=== PATIENT | male | born 1940 | race Caucasian/White ===

== ENCOUNTER → 2016-10-10 | Outpatient (CLI) | payer MEDICARE, BC | END | disposition home or self-care (01) | LOC: GMAB 10:29 | PROVIDERS: ATTEND Family Medicine | DX: Z12.5 Encounter for screening for malignant neoplasm of prostate (principal); I10 Essential (primary) hypertension | CPT/HCPCS: 84443; G0103 ==

== ENCOUNTER → 2016-11-28 | Outpatient (CLI) | payer MEDICARE, BC | END | disposition home or self-care (01) | LOC: LAB.O 13:19 | PROVIDERS: ATTEND Student in an Organized Health Care Education/Training Program | DX: N18.3 Chronic kidney disease, stage 3 (moderate) (principal); E11.9 Type 2 diabetes mellitus without complications; I12.9 Hypertensive chronic kidney disease with stage 1 through stage 4 chronic kidney disease, or unspecified chronic kidney disease; N25.81 Secondary hyperparathyroidism of renal origin; D63.1 Anemia in chronic kidney disease; N39.0 Urinary tract infection, site not specified ==

== ENCOUNTER → 2016-11-29 | Outpatient (CLI) | payer MEDICARE, BC | END | disposition home or self-care (01) | LOC: LAB.O 14:15 | PROVIDERS: ATTEND Student in an Organized Health Care Education/Training Program | DX: N39.0 Urinary tract infection, site not specified (principal); I12.9 Hypertensive chronic kidney disease with stage 1 through stage 4 chronic kidney disease, or unspecified chronic kidney disease; N18.3 Chronic kidney disease, stage 3 (moderate); E11.9 Type 2 diabetes mellitus without complications; N25.81 Secondary hyperparathyroidism of renal origin; D63.1 Anemia in chronic kidney disease ==

== ENCOUNTER → 2017-01-09 | Outpatient (CLI) | payer MEDICARE, BC | END | disposition home or self-care (01) | LOC: LAB 11:45 | PROVIDERS: ATTEND Internal Medicine Hematology & Oncology | DX: C61 Malignant neoplasm of prostate (principal); D47.2 Monoclonal gammopathy; E11.9 Type 2 diabetes mellitus without complications; N18.3 Chronic kidney disease, stage 3 (moderate) ==

== ENCOUNTER → 2017-03-21 | Outpatient (CLI) | payer MEDICARE, BC | END | disposition home or self-care (01) | LOC: LAB.O 11:49 | PROVIDERS: ATTEND Internal Medicine Cardiovascular Disease | DX: E78.00 Pure hypercholesterolemia, unspecified (principal); I87.2 Venous insufficiency (chronic) (peripheral); I73.9 Peripheral vascular disease, unspecified; I25.119 Atherosclerotic heart disease of native coronary artery with unspecified angina pectoris ==

== ENCOUNTER 2017-07-07 09:05 | Inpatient (IN) | payer MEDICARE ==
[~2017-07-07 09:05] MED LIST: predniSONE 10 MG TAB PO SCH
[2017-07-07] MEDS ORDERED: SODIUM PHOS/BIPHOS ENEMA ADULT 133 ML BTTL PR PRN (09:59)
[2017-07-07] MEDS ORDERED: MAGNESIUM HYDROXIDE 30 ML UD PO PRN ×2 (09:59→13:46)
[2017-07-07] MEDS ORDERED: HYDROcodone 5MG/APAP 325MG 1 EA TAB PO PRN (09:59)
[2017-07-07] MEDS ORDERED: ACETAMINOPHEN 325 MG TAB ONE (10:13)
[2017-07-07] MEDS: ACETAMINOPHEN 500 MG TAB PO PRN ×2 (10:16→21:35)
--- NOTE | 2017-07-07 11:13 | PCM.CORE ---
Physician DVT/VTE - Prophylaxis Currently: Patient already on anticoagulation therapy - Nurse DVT Assessment & Total Each Risk Factor Represents 3 Points: Age over 75 years, Medical PT with Hx of SC, CHF, Severe infection/sepsis Each Risk Factor Represents 1 Point: Hx Major Surgery <1month Each Risk Factor is 1 Point: Serious Lung disease (pnemonia <1month, COPD, emphysema,etc) DVT Assessment Score: 8 - 5 or more Very High Risk Treatments: Early Ambulation *, Sequential Compression Device
--- NOTE | 2017-07-07 11:20 | RAD ---
Study: Frontal and Lateral Views of the Chest. Indication: s/p CABG Comparison: September 17, 2015. Impression: New median sternotomy wires. Heart size normal. Thoracic aorta tortuous. Emphysema suspected, otherwise lungs clear. Osteopenia. If this is a new finding, DEXA scan recommended as well as evaluation for possible osteoporosis treatment. Electronically signed by: Eleuterio Alvarado MD 07/07/2017 11:19 AM [facility]
[2017-07-07] MEDS ORDERED: FUROSEMIDE 40 MG TAB PO ONE (12:11)
[2017-07-07] MEDS ORDERED: ARFORMOTEROL TARTRATE 15 MCG/2 ML NEB NEB SCH (12:30)
[2017-07-07] MEDS ORDERED: ALPRAZolam 0.25 MG TAB PO PRN (13:46)
[2017-07-07] MEDS ORDERED: LEVALBUTEROL NEBS 1.25 MG/3 ML VIAL NEB PRN (13:46)
[2017-07-07] MEDS ORDERED: FUROSEMIDE 40 MG TAB PO PRN (13:46)
[2017-07-07] MEDS ORDERED: BISACODYL SUPPOSITORY 10 MG PR PRN (13:46)
[2017-07-07] MEDS ORDERED: BENZOCAINE-MENTH LOZ (CEPACOL) 1 EA LOZ MT PRN (13:46)
[2017-07-07] MEDS ORDERED: ACETAMINOPHEN W/COD #3 TAB 1 EA TAB PO PRN (13:46)
[2017-07-07] MEDS ORDERED: DOCUSATE SODIUM 100 MG CAP PO PRN (13:46)
[2017-07-07] MEDS ORDERED: POLYETHYLENE GLYCOL 3350 17 GM PCKT PO PRN (13:51)
[2017-07-07] MEDS ORDERED: EPOETIN ALFA 10000 UNIT IJ SCH (14:00)
[2017-07-07] MEDS ORDERED: predniSONE 10 MG TAB ONE (14:10)
[2017-07-07] MEDS ORDERED: TAMSULOSIN 0.4 MG CAP ONE (14:10)
[2017-07-07] MEDS ORDERED: AMIODARONE HCL 200 MG TAB ONE (14:10)
[2017-07-07] MEDS: INSULIN DETEMIR 100 UNITS/ML PEN SUBCU SCH (14:20)
[2017-07-07] MEDS: LORATADINE 10 MG TAB PO SCH (14:23)
[2017-07-07] MEDS ORDERED: DEXTROSE 50% 25 GM/50 ML SYG IV PRN (14:26)
[2017-07-07] MEDS ORDERED: GLUCAGON INJ 1 MG VIAL SUBCU PRN (14:26)
[2017-07-07] MEDS: LACTOBACILLUS 1 TAB PO SCH ×2 (15:30→21:23)
[2017-07-07] MEDS: diltiaZEM HCL TAB 30 MG TAB PO SCH ×2 (15:30→21:22)
[2017-07-07] MEDS: LABETALOL 200 MG TAB PO SCH ×2 (15:30→21:22)
[2017-07-07] MEDS: LEVALBUTEROL NEBS 1.25 MG/3 ML VIAL NEB SCH (16:10)
[2017-07-07] MEDS: INSULIN LISPRO 100 UNITS/ML PEN SUBCU SCH ×2 (17:00→21:23)
[2017-07-07] MEDS: NYSTATIN SUSPENSION 5 ML UD MT SCH ×2 (17:02→21:22)
[2017-07-07] MEDS: FERROUS GLUCONATE 325 MG TAB PO SCH (17:02)
[2017-07-07] MEDS: ARFORMOTEROL TARTRATE 15 MCG/2 ML NEB NEB SCH (20:30)
[2017-07-07] MEDS: BUDESONIDE NEBS 0.5 MG/2 ML VIAL NEB SCH (20:31)
[2017-07-07] MEDS: ATORVASTATIN 10 MG TAB PO SCH (21:22)
[2017-07-07] MEDS: FAMOTIDINE 20 MG TAB PO SCH (21:22)
[2017-07-07] MEDS: APIXABAN 2.5 MG TAB PO SCH (21:23)
[2017-07-08] MEDS: LEVALBUTEROL NEBS 1.25 MG/3 ML VIAL NEB SCH ×3 (00:25→16:10)
[2017-07-08] MEDS: BUDESONIDE NEBS 0.5 MG/2 ML VIAL NEB SCH (07:28)
[2017-07-08] MEDS: ARFORMOTEROL TARTRATE 15 MCG/2 ML NEB NEB SCH ×2 (07:28→20:57)
[2017-07-08] MEDS: INSULIN LISPRO 100 UNITS/ML PEN SUBCU SCH ×4 (07:48→21:17)
[2017-07-08] MEDS: FERROUS GLUCONATE 325 MG TAB PO SCH ×3 (07:53→18:04)
[2017-07-08] MEDS: POTASSIUM CHLORIDE 20 MEQ TAB PO SCH (07:56)
[2017-07-08] MEDS: ACETAMINOPHEN 500 MG TAB PO PRN ×2 (07:57→13:53)
[2017-07-08] MEDS: LACTOBACILLUS 1 TAB PO SCH ×3 (09:42→20:36)
[2017-07-08] MEDS: TAMSULOSIN 0.4 MG CAP PO SCH (10:47)
[2017-07-08] MEDS: diltiaZEM HCL TAB 30 MG TAB PO SCH ×3 (10:47→20:36)
[2017-07-08] MEDS: APIXABAN 2.5 MG TAB PO SCH ×2 (10:47→20:36)
[2017-07-08] MEDS: DOCUSATE SODIUM 100 MG CAP PO SCH (10:47)
[2017-07-08] MEDS: ASPIRIN EC 81 MG TAB PO SCH (10:47)
[2017-07-08] MEDS: AMIODARONE HCL 200 MG TAB PO SCH (10:47)
[2017-07-08] MEDS: FUROSEMIDE 40 MG TAB PO SCH (10:47)
[2017-07-08] MEDS: LORATADINE 10 MG TAB PO SCH (10:47)
[2017-07-08] MEDS: NYSTATIN SUSPENSION 5 ML UD MT SCH ×4 (10:48→20:35)
[2017-07-08] MEDS: LABETALOL 200 MG TAB PO SCH ×3 (10:48→20:36)
--- NOTE | 2017-07-08 10:57 | HP ---
REASON FOR SWING BED ADMISSION: Physical therapy and reconditioning efforts to bridge the patient to cardiopulmonary rehabilitation. HISTORY OF PRESENT ILLNESS: Mr. Epps is a 77 year-old male patient who has a longstanding history of widespread vasculopathy. He was recently hospitalized at [facility] in [facility] for three-vessel coronary artery bypass graft. The surgery was performed on June 14. Postoperatively, he was unable to come off the ventilator and developed a ventilator associated pneumonia with an Enterobacter aeruginosa. He remained intubated for 12 days and was extubated on the . He also had acute kidney failure and required hemodialysis temporarily as well as developed atrial fibrillation with a rapid ventricular response which was treated with amiodarone. The patient was extubated and had progressed well, was able to work with physical therapy and was treated to completion for the underlying pneumonia with Ceftin. His kidney functions. had improved to the point that he was able to be discharged home to Swing Bed in efforts to get him to a cardiac rehabilitation closer to home. He is now being admitted to Swing Bed today for ongoing physical therapy and rehabilitation. He was admitted in stable condition. PAST MEDICAL HISTORY: 1. Hypertension. Last echocardiogram in 2016 showed an ejection fraction of 50 to 60%. 2. Peripheral vascular disease. 3. TIA status post left carotid endarterectomy in February 2005. 4. Chronic obstructive pulmonary disease having smoked well over 40 years but quit 20 years previously. 5. Diabetes mellitus type 2 diagnosed in 2002. PAST SURGICAL HISTORY: 1. Left carotid endarterectomy in February 2005. 2. Left femoral popliteal in 2004. 3. Stenting the right common external iliac artery in 2006 with an attempted SFA stenting in 2015 that was unsuccessful with a completely occluded SFA and distal reconstitution to profunda. 4. Stenting of left subclavian artery in 2010. 5. Stenting of right and left common iliac arteries. 6. SMA stent, July 2014. 7 Renal artery stenting to left renal artery in 2016 x2. CURRENT MEDICATIONS Provided at time of discharge on admission to Swing Bed. 1. Procrit 10,000 units Monday, Monday, Monday. 2. Potassium chloride 20 mEq daily. 3. Ferrous gluconate 324 mg twice a day. 4. Magnesium hydroxide 30 mLs as needed. 5. Prednisone 10 mg daily. 6. Flomax 0.4 mg daily. 7. Polyethylene Glycol 1 daily. 8. Loratadine 10 mg daily. 9. Xopenex nebulizer 1.25 mg every 4 hours. 10. Probiotic daily. 11. Labetalol 200 mg 3 times a day. 12. Humalog sliding scale. 13. Levemir 10 units daily. 14. Hydralazine 25 mg daily. 15. Lasix 40 mg b.i.d. as needed. 16. Famotidine 20 mg at bedtime. 17. Colace 100 mg b.i.d. 18. Diltiazem 30 mg t.i.d. 19. Amiodarone 400 mg daily until July 11, 2017. 20. Amiodarone 200 mg daily to start on July 12, 2017. 21. Pulmicort 0.5 mg nebulizer daily. 22. Dulcolax suppository 10 mg daily as needed. 23. Lipitor 10 mg at bedtime. 24. Aspirin 81 mg daily. 25. Brovana 15 mcg b.i.d. 26. Xanax 0.25 mg every 8 hours. 27. Tylenol No. 3 one every 4 hours as needed for pain. 28. Eliquis 2.5 mg b.i.d. 29. Plavix but not listed in medications at time of discharge. ALLERGIES: GABAPENTIN. PROVIDERS: Dr. Warner Jolly, Thoracic Surgeon, Dr. Ata Galindo, Nephrology Dr. Jordan Dash, Insurance Verification Clerk Ruth Peterson, Infectious disease. Dr. Bret Yin, [place] Customer Experience Manager Dr. Garibay, Primary Care Provider FOLLOWUP APPOINTMENTS LISTED AT TIME OF DISCHARGE ON ADMISSION TO SWING BED Dr. Jorgito Nunez in 3 weeks, [facility] - . He is to see Dr. Hartman in [place] and to have a CBC and renal function profile completed. Dr. Warner Jolly, his cerebrovascular surgeon in 4 weeks. FAMILY HISTORY: Positive for coronary artery disease in family members less than 60 years of age as well as hypertension. 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 He does not drink alcohol and does not use drugs and has not smoked in well over 20 years. Prior to that, the patient smoked for 40 years. PHYSICAL EXAMINATION: VITAL SIGNS: Temperature 97.6, pulse 77, blood pressure 180/76, respirations 20, saturation 97% on room air. Initial weight 78.0 kg. GENERAL: The patient appears unkempt. On arrival from [facility], the patient was obviously uncomfortable from the pervious long trip but appeared to be in no acute distress. He does look tired but is alert and oriented x 3. HEENT: Tympanic membranes are clear bilaterally. Oropharynx is pink and moist without any lesions. NECK: Supple, non-tender with full range of motion. No jugular venous distention. CHEST: Lung sounds were coarse on the right side, more toward the base toward the lateral aspect. Fairly clear on the left, On his chest wall there is a healing sternotomy incision that appears to be healing without any complications. No signs of infection. There are multiple thoracotomy puncture sites for a left side chest tube and mediastinal chest tubes. The left thoracotomy site is seeping sanguinous fluid but appears to be without any signs of infection. HEART: Regular rate and rhythm without any appreciable murmurs, rubs, or gallops. ABDOMEN: Soft but obese with positive bowel sounds. EXTREMITIES: There is bilateral 1+ pitting edema with incision sites to the internal from previous vein graft harvest from his right leg which is healing without any drainage.or signs of infection. His pulses are very faint bilaterally, capillary refill is brisk. NEUROLOGIC: He is alert and oriented x 3. Facial features are symmetrical. Extraocular movement was negative. There was no notable nystagmus. Cranial nerves II through XII are grossly intact. LABORATORY: Admission lab to [facility], CBC shows white count 10,000, hemoglobin 9.1, hematocrit 27.6, platelet count 175,000. Differential shows a left shift. Chemistries show a normal potassium level of 3.9, sodium 136. Carbon dioxide elevated at 33. Anion gap normal at 12. BUN 39, creatinine 1.94. Previous creatinine level was around 1.2 to 1.3. Glucose 138, calcium 85 , liver functions showed to be within normal limits. BNP 882. Urinalysis is pending. RADIOLOGY: Chest x-ray per radiology interpretation of 2-view chest shows emphysema suspected. Otherwise, lungs are clear. ASSESSMENT: 1. Status post coronary artery bypass graft x3 vessels on June 14, 2017. 2. Acute renal failure requiring temporary hemodialysis while at [facility] with patient's renal function improving. 3. Macrocytic hypochromic anemia secondary to kidney failure and recent coronary artery bypass graft. 4. History of respiratory failure requiring mechanical ventilation for over 12 days with the development of a ventilator associated pneumonia with Enterobacter aeruginosa treated with Ceftin to completion. 5. New onset of atrial fibrillation status post coronary artery bypass graft on amiodarone and Cardizem. 6. Chronic hypertension with last ejection fraction noted to be in 2017 between 55 and 60%. 7. Type 2 diabetes mellitus on insulin. 8. History of severe coronary artery disease and small vessel disease requiring multiple coronary stents, renal stents and iliac stents. 9. History of transient ischemic attack in 2004 status post left carotid endarterectomy. 10. Chronic obstructive pulmonary disease having stopped smoking 20 years previously. 11. Thrush secondary to extended endotracheal tube intubation with multiple antibiotics complicated by type 2 diabetes. PLAN: Mr. Epps is to be admitted to [facility] for ongoing physical therapy and rehabilitation in efforts to assist him to transition into a cardiopulmonary rehabilitation program. He has multiple appointments for followup but his specialist on discharge as listed above as well as those available in the medical records as in the time frame to be seen with appointments yet to be confirmed. He will be started back on his home medications as per discharge to include amiodarone at 400 mg until July 11 and then he will be changed to 200 mg daily after that. He is on Eliquis. He has been on Plavix previously and we need to certainly find out whether or not this needs to be continued as it was not provided in his medical record at time of discharge. His diet will consist of a cardiac diet. We will also get a consultation with physical therapy as well as to get him set up with [facility] once cleared to do so by his cardiovascular surgeon and enterprise solutions architect. ACTIVITIES: He is instructed to increase his activities as possibly with physical therapy. He is to take daily showers and to keep his incisions clean. He is to have no tub baths. No lotion or creams or powders or peroxides to the incision sites. He is not to drive until he has been cleared by his physician. He is not to lift, push or pull more than 10 pounds until he is released to do so by his cardiovascular surgeon. We will also have him on incentive spirometry with good pulmonary hygiene with breathing treatment as ordered to prevent any complications of continuing pneumonia. We will anticipate his length of stay to be at least 3 to 7 days with anticipation of discharge and to continued here was his cardiac rehabilitation program yet to be established. Until the, we will continue to monitor and treat appropriately. Dr. Calhoun is available for consultation. #[id number] [facility]
[2017-07-08] MEDS: INSULIN DETEMIR 100 UNITS/ML PEN SUBCU SCH (10:58)
--- NOTE | 2017-07-08 18:08 | PN ---
DATE: 07/08/17 SUBJECTIVE: The patient is feeling quite well. He is able to get out of bed and help himself to get to the bathroom. He is encouraged to increase his activity level utilizing the walker for support. Encouraged to walk 4, 5 or 6 times a day in the hallways to increase strength and confidence. Physical Therapy is to assist with his ongoing rehabilitation and strengthening program. Nurses can also help when therapy is not available. Appetite is fairly good. OBJECTIVE: See vitals. LUNGS: Clear. HEART: Tones regular. ABDOMEN: Soft. He does have some drainage from the left anterior chest stab wound from his recent bypass graft surgery performed in [place]. Will get a culture with results pending. ASSESSMENT: 1. Status post coronary artery bypass graft x3 vessels on June 14, 2017. 2. Acute renal failure requiring temporary hemodialysis while at [facility] with patient's renal function improving. 3. Macrocytic hypochromic anemia secondary to kidney failure and recent coronary artery bypass graft. 4. History of respiratory failure requiring mechanical ventilation for over 12 days with the development of a ventilator associated pneumonia with Enterobacter aeruginosa treated with Ceftin to completion. 5. New onset of atrial fibrillation status post coronary artery bypass graft on amiodarone and Cardizem. 6. Chronic hypertension with last ejection fraction noted to be in 2017 between 55 and 60%. 7. Type 2 diabetes mellitus on insulin. 8. History of severe coronary artery disease and small vessel disease requiring multiple coronary stents, renal stents and iliac stents. 9. History of transient ischemic attack in 2004 status post left carotid endarterectomy. 10. Chronic obstructive pulmonary disease having stopped smoking 20 years previously. 11. Thrush secondary to extended endotracheal tube intubation with multiple antibiotics complicated by type 2 diabetes. PLAN: The patient will continue with rehabilitation until able to safely return home. Physical Therapy as well as nursing staff will assist with his ongoing rehabilitation efforts. Special attention to avoid falls. Await culture results from the left chest draining site. #[id number] [facility]
[2017-07-08] MEDS: ATORVASTATIN 10 MG TAB PO SCH (20:36)
[2017-07-08] MEDS: FAMOTIDINE 20 MG TAB PO SCH (20:36)
[2017-07-09] MEDS: LEVALBUTEROL NEBS 1.25 MG/3 ML VIAL NEB SCH ×3 (00:10→16:40)
[2017-07-09] MEDS: ACETAMINOPHEN 500 MG TAB PO PRN ×3 (01:54→21:17)
[2017-07-09] MEDS: POTASSIUM CHLORIDE 20 MEQ TAB PO SCH (07:04)
[2017-07-09] MEDS: FERROUS GLUCONATE 325 MG TAB PO SCH ×2 (07:04→17:01)
[2017-07-09] MEDS: INSULIN LISPRO 100 UNITS/ML PEN SUBCU SCH ×4 (07:08→21:19)
[2017-07-09] MEDS: ARFORMOTEROL TARTRATE 15 MCG/2 ML NEB NEB SCH ×2 (08:17→20:55)
[2017-07-09] MEDS: BUDESONIDE NEBS 0.5 MG/2 ML VIAL NEB SCH (08:17)
[2017-07-09] MEDS: NYSTATIN SUSPENSION 5 ML UD MT SCH ×4 (09:24→21:12)
[2017-07-09] MEDS: AMIODARONE HCL 200 MG TAB PO SCH (09:24)
[2017-07-09] MEDS: diltiaZEM HCL TAB 30 MG TAB PO SCH ×3 (09:25→21:14)
[2017-07-09] MEDS: DOCUSATE SODIUM 100 MG CAP PO SCH (09:25)
[2017-07-09] MEDS: APIXABAN 2.5 MG TAB PO SCH ×2 (09:25→21:12)
[2017-07-09] MEDS: LABETALOL 200 MG TAB PO SCH ×3 (09:25→21:12)
[2017-07-09] MEDS: FUROSEMIDE 40 MG TAB PO SCH (09:25)
[2017-07-09] MEDS: TAMSULOSIN 0.4 MG CAP PO SCH (09:26)
[2017-07-09] MEDS: ASPIRIN EC 81 MG TAB PO SCH (09:26)
[2017-07-09] MEDS: LORATADINE 10 MG TAB PO SCH (09:26)
[2017-07-09] MEDS: INSULIN DETEMIR 100 UNITS/ML PEN SUBCU SCH (09:29)
[2017-07-09] MEDS: LACTOBACILLUS 1 TAB PO SCH ×3 (09:30→21:14)
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
[2017-07-09] MEDS: ATORVASTATIN 10 MG TAB PO SCH (21:12)
[2017-07-09] MEDS: FAMOTIDINE 20 MG TAB PO SCH (21:12)
[2017-07-10] MEDS: LEVALBUTEROL NEBS 1.25 MG/3 ML VIAL NEB SCH ×2 (00:15→08:50)
[2017-07-10] MEDS: INSULIN LISPRO 100 UNITS/ML PEN SUBCU SCH ×4 (07:39→21:21)
[2017-07-10] MEDS: POTASSIUM CHLORIDE 20 MEQ TAB PO SCH ×2 (08:22→17:50)
[2017-07-10] MEDS: FERROUS GLUCONATE 325 MG TAB PO SCH ×2 (08:22→17:50)
[2017-07-10] MEDS: ARFORMOTEROL TARTRATE 15 MCG/2 ML NEB NEB SCH ×3 (08:50→20:57)
[2017-07-10] MEDS: BUDESONIDE NEBS 0.5 MG/2 ML VIAL NEB SCH ×2 (08:50)
[2017-07-10] MEDS: LABETALOL 200 MG TAB PO SCH ×3 (09:00→21:22)
[2017-07-10] MEDS: diltiaZEM HCL TAB 30 MG TAB PO SCH ×3 (09:00→21:21)
[2017-07-10] MEDS ORDERED: ACETAMINOPHEN 325 MG TAB PO ONE (09:00)
[2017-07-10] MEDS: DOCUSATE SODIUM 100 MG CAP PO SCH (09:00)
[2017-07-10] MEDS ORDERED: FUROSEMIDE INJ 20 MG/2 ML VIAL IV ONE (09:00)
[2017-07-10] MEDS ORDERED: EPOETIN ALFA 10000 UNIT INJ SCH (09:00)
[2017-07-10] MEDS: LORATADINE 10 MG TAB PO SCH (09:00)
[2017-07-10] MEDS ORDERED: SODIUM CHLORIDE 0.9% 500ML 500 ML IVS SCH (09:00)
[2017-07-10] MEDS: ASPIRIN EC 81 MG TAB PO SCH (09:00)
[2017-07-10] MEDS: AMIODARONE HCL 200 MG TAB PO SCH (09:00)
[2017-07-10] MEDS: TAMSULOSIN 0.4 MG CAP PO SCH (09:00)
[2017-07-10] MEDS ORDERED: diphenhydrAMINE HCL 50 MG/ML VIAL IV ONE (09:00)
[2017-07-10] MEDS: FUROSEMIDE 40 MG TAB PO SCH (09:00)
[2017-07-10] MEDS: APIXABAN 2.5 MG TAB PO SCH ×2 (09:00→21:22)
[2017-07-10] MEDS: LACTOBACILLUS 1 TAB PO SCH ×3 (09:01→21:22)
[2017-07-10] MEDS: NYSTATIN SUSPENSION 5 ML UD MT SCH ×4 (09:01→21:22)
[2017-07-10] MEDS ORDERED: HYDROcodone 5MG/APAP 325MG 1 EA TAB PO PRN (09:46)
[2017-07-10] MEDS: INSULIN DETEMIR 100 UNITS/ML PEN SUBCU SCH (10:21)
--- NOTE | 2017-07-10 11:04 | PN ---
DATE: 07/10/17 SUBJECTIVE: The patient is very weak today. Slightly increase shortness of breath with pedal edema noted upon examination. Appetite is fair. Discussed case with the who feels that he has been fighting anemia for a long time. He is followed closely by Dr. Garibay in the clinic. He had been on Procrit after his bypass grafting on his coronary arteries recently but his hemoglobin has significantly decreased recently. Await stool guaiacs also to evaluate for blood loss. OBJECTIVE: General coloration and subconjunctival pallor is noted to be worse. The patient is alert and able to communicate but is very tired. Hemoglobin has dropped down to 7.7 from 9.1 on admission. He does have a macrocytic hyperchromic presentation but further investigation with iron, vitamin B12 and folate levels will be obtained to assist with future guidance. LUNGS have a few rhonchi, no significant rales at this time. HEART tones regular. Previous wound culture of drainage has shown no growth. His chest x-ray on admission revealed heart size was normal with some chronic obstructive pulmonary disease evident. His I&O has been somewhat difficult to obtain and is going to be stressed to be more vigorously adhered to so we can more clearly evaluate his intake and output. We are restricting his fluid intake accordingly. There may be some inaccuracies in the fluid intake as of yesterday and these will be reviewed. LABORATORY: White count 5,400, hemoglobin down to 7.7. Chemistry does show a potassium down from 3.9 to 3.3. BUN is down from 39 to 36 and creatinine is 1.94 and is now down to 1.86. His sugars fasting are 114 this morning, showing some improved control. Beta natriuretic peptide has also decreased from 882 to 759. ASSESSMENT: 1. Status post coronary artery bypass graft x3 vessels on June 14, 2017. 2. Acute renal failure requiring temporary hemodialysis while at [facility] with patient's renal function improving. 3. Macrocytic hypochromic anemia secondary to kidney failure and recent coronary artery bypass graft. 4. History of respiratory failure requiring mechanical ventilation for over 12 days with the development of a ventilator associated pneumonia with Enterobacter aeruginosa treated with Ceftin to completion. 5. New onset of atrial fibrillation status post coronary artery bypass graft on amiodarone and Cardizem. 6. Chronic hypertension with last ejection fraction noted to be in 2017 between 55 and 60%. 7. Type 2 diabetes mellitus on insulin. 8. History of severe coronary artery disease and small vessel disease requiring multiple coronary stents, renal stents and iliac stents. 9. History of transient ischemic attack in 2005 status post left carotid endarterectomy. 10. Chronic obstructive pulmonary disease having stopped smoking 20 years previously. 11. Thrush secondary to extended endotracheal tube intubation with multiple antibiotics complicated by type 2 diabetes. 12. Acute worsening anemia, hyperchromic macrocytic; in present requiring two units of packed red blood cells to allow the patient to be able to participate in his rehabilitation postoperative coronary artery bypass graft. PLAN: Discussed with the patient's with who believes strongly that the patient would benefit from some red blood cell infusions of 2 units. Observe closely. Avoid overhydration. Give furosemide IV low-dose between the first and second unit and reevaluate after completion. Steadily increase activity level until being able to safely return home. [facility][id number] [facility]
[2017-07-10] MEDS: ATORVASTATIN 10 MG TAB PO SCH (21:22)
[2017-07-10] MEDS: FAMOTIDINE 20 MG TAB PO SCH (21:22)
[2017-07-10] MEDS: ACETAMINOPHEN 500 MG TAB PO PRN (21:39)
[2017-07-11] MEDS: ACETAMINOPHEN 500 MG TAB PO PRN ×2 (04:24→21:37)
[2017-07-11] MEDS: BUDESONIDE NEBS 0.5 MG/2 ML VIAL NEB SCH (08:08)
[2017-07-11] MEDS: POTASSIUM CHLORIDE 20 MEQ TAB PO SCH ×2 (08:08→16:41)
[2017-07-11] MEDS: ARFORMOTEROL TARTRATE 15 MCG/2 ML NEB NEB SCH ×2 (08:08→20:27)
[2017-07-11] MEDS: FERROUS GLUCONATE 325 MG TAB PO SCH ×2 (08:08→16:41)
[2017-07-11] MEDS: INSULIN LISPRO 100 UNITS/ML PEN SUBCU SCH ×4 (08:12→20:52)
[2017-07-11] MEDS: DOCUSATE SODIUM 100 MG CAP PO SCH (08:56)
[2017-07-11] MEDS: LORATADINE 10 MG TAB PO SCH (08:56)
[2017-07-11] MEDS: diltiaZEM HCL TAB 30 MG TAB PO SCH ×3 (08:56→20:52)
[2017-07-11] MEDS: APIXABAN 2.5 MG TAB PO SCH ×2 (08:56→20:52)
[2017-07-11] MEDS: TAMSULOSIN 0.4 MG CAP PO SCH (08:56)
[2017-07-11] MEDS: LABETALOL 200 MG TAB PO SCH ×3 (08:56→20:52)
[2017-07-11] MEDS: AMIODARONE HCL 200 MG TAB PO SCH (08:56)
[2017-07-11] MEDS: ASPIRIN EC 81 MG TAB PO SCH (08:56)
[2017-07-11] MEDS: INSULIN DETEMIR 100 UNITS/ML PEN SUBCU SCH (08:57)
[2017-07-11] MEDS: NYSTATIN SUSPENSION 5 ML UD MT SCH ×4 (08:57→20:52)
[2017-07-11] MEDS: FUROSEMIDE 40 MG TAB PO SCH (08:57)
[2017-07-11] MEDS: LACTOBACILLUS 1 TAB PO SCH ×3 (08:57→20:52)
[2017-07-11] MEDS: FAMOTIDINE 20 MG TAB PO SCH (20:52)
[2017-07-11] MEDS: ATORVASTATIN 10 MG TAB PO SCH (20:52)
[2017-07-12] MEDS: INSULIN LISPRO 100 UNITS/ML PEN SUBCU SCH ×4 (07:06→21:23)
[2017-07-12] MEDS ORDERED: AMIODARONE HCL 200 MG TAB ONE (07:13)
[2017-07-12] MEDS: FERROUS GLUCONATE 325 MG TAB PO SCH ×2 (07:21→16:33)
[2017-07-12] MEDS: POTASSIUM CHLORIDE 20 MEQ TAB PO SCH ×2 (07:21→16:33)
[2017-07-12] MEDS: ARFORMOTEROL TARTRATE 15 MCG/2 ML NEB NEB SCH ×2 (08:10→20:23)
[2017-07-12] MEDS: BUDESONIDE NEBS 0.5 MG/2 ML VIAL NEB SCH (08:10)
[2017-07-12] MEDS ORDERED: cloNIDine HCL 0.1 MG TAB PO ONE (08:19)
[2017-07-12] MEDS: TAMSULOSIN 0.4 MG CAP PO SCH (08:23)
[2017-07-12] MEDS: ASPIRIN EC 81 MG TAB PO SCH (08:23)
[2017-07-12] MEDS: LABETALOL 200 MG TAB PO SCH ×3 (08:24→20:09)
[2017-07-12] MEDS: FUROSEMIDE 40 MG TAB PO SCH (08:24)
[2017-07-12] MEDS: APIXABAN 2.5 MG TAB PO SCH ×2 (08:24→21:23)
[2017-07-12] MEDS: diltiaZEM HCL TAB 30 MG TAB PO SCH ×3 (08:24→20:09)
[2017-07-12] MEDS: AMIODARONE HCL 200 MG TAB PO SCH (08:25)
[2017-07-12] MEDS: DOCUSATE SODIUM 100 MG CAP PO SCH (08:28)
[2017-07-12] MEDS: LORATADINE 10 MG TAB PO SCH (08:28)
[2017-07-12] MEDS: LACTOBACILLUS 1 TAB PO SCH ×3 (08:30→20:09)
[2017-07-12] MEDS: NYSTATIN SUSPENSION 5 ML UD MT SCH ×5 (08:33→21:00)
[2017-07-12] MEDS: INSULIN DETEMIR 100 UNITS/ML PEN SUBCU SCH (08:33)
[2017-07-12] MEDS ORDERED: TEMAZEPAM 15 MG CAP PO PRN (10:24)
[2017-07-12] MEDS: ACETAMINOPHEN 500 MG TAB PO PRN (13:32)
[2017-07-12] MEDS: ATORVASTATIN 10 MG TAB PO SCH (20:09)
[2017-07-12] MEDS: FAMOTIDINE 20 MG TAB PO SCH (20:09)
[2017-07-13] MEDS: INSULIN LISPRO 100 UNITS/ML PEN SUBCU SCH (07:11)
[2017-07-13] MEDS: BUDESONIDE NEBS 0.5 MG/2 ML VIAL NEB SCH (07:26)
[2017-07-13] MEDS: ARFORMOTEROL TARTRATE 15 MCG/2 ML NEB NEB SCH (07:26)
[2017-07-13] MEDS: POTASSIUM CHLORIDE 20 MEQ TAB PO SCH ×2 (08:00→08:12)
[2017-07-13] MEDS: FERROUS GLUCONATE 325 MG TAB PO SCH (08:12)
[2017-07-13] MEDS: LABETALOL 200 MG TAB PO SCH (08:59)
[2017-07-13] MEDS: APIXABAN 2.5 MG TAB PO SCH (09:00)
[2017-07-13] MEDS: diltiaZEM HCL TAB 30 MG TAB PO SCH (09:00)
[2017-07-13] MEDS: AMIODARONE HCL 200 MG TAB PO SCH (09:00)
[2017-07-13] MEDS: ASPIRIN EC 81 MG TAB PO SCH (09:00)
[2017-07-13] MEDS: FUROSEMIDE 40 MG TAB PO SCH (09:00)
[2017-07-13] MEDS: TAMSULOSIN 0.4 MG CAP PO SCH (09:00)
[2017-07-13] MEDS: LACTOBACILLUS 1 TAB PO SCH (09:21)
[2017-07-13] MEDS: INSULIN DETEMIR 100 UNITS/ML PEN SUBCU SCH (09:23)
[2017-07-13] MEDS: LORATADINE 10 MG TAB PO SCH (09:24)
[2017-07-13] MEDS: DOCUSATE SODIUM 100 MG CAP PO SCH (09:24)
[2017-07-13] MEDS: NYSTATIN SUSPENSION 5 ML UD MT SCH (09:34)
[2017-07-13 10:32] VITALS: BP 149/58; TEMP 97.8; O2SAT 98
--- NOTE | 2017-07-13 12:12 | RAD ---
EXAM DESCRIPTION: Chest,1 View CLINICAL HISTORY: congestion COMPARISON: July 07, 2017 Findings: Single portable frontal view of the chest. Postsurgical changes with median sternotomy wires. Cardiac silhouette and pulmonary vascularity are within normal limits. Calcific atherosclerosis and tortuosity noted of the thoracic aorta. Lungs are clear without focal consolidative infiltrates. No significant pleural effusion. No pneumothorax. Electronic device projects over the right upper abdominal quadrant. IMPRESSION: No radiographic evidence for acute cardiopulmonary process. Electronically signed by: Kyaw Cantu MD 07/13/2017 12:11 PM WARBLE SAW OPERATOR
[2017-07-13] MEDS ORDERED: DOCUSATE SODIUM 100 MG CAP PO SCH (21:00)
--- NOTE | 2017-07-14 08:40 | DS ---
SUPERVISING PHYSICIAN: Lalo Frankel MD DISCHARGE DIAGNOSIS: 1. Status post coronary artery bypass graft x3 vessels on June 14, 2017. 2. Acute renal failure requiring temporary hemodialysis while at [facility] with patient's renal function improving. 3. Macrocytic hypochromic anemia secondary to kidney failure and recent coronary artery bypass graft. 4. History of respiratory failure requiring mechanical ventilation for over 12 days with the development of a ventilator associated pneumonia with Enterobacter aeruginosa treated with Ceftin to completion. 5. New onset of atrial fibrillation status post coronary artery bypass graft on amiodarone and Cardizem. 6. Chronic hypertension with last ejection fraction noted to be in 2017 between 55 and 60%. 7. Type 2 diabetes mellitus on insulin. 8. History of severe coronary artery disease and small vessel disease requiring multiple coronary stents, renal stents and iliac stents. 9. History of transient ischemic attack in 2004 status post left carotid endarterectomy. 10. Chronic obstructive pulmonary disease having stopped smoking 20 years previously. 11. Thrush secondary to extended endotracheal tube intubation with multiple antibiotics complicated by type 2 diabetes. 12. Acute worsening anemia, hyperchromic macrocytic; in present requiring two units of packed red blood cells to allow the patient to be able to participate in his rehabilitation postoperative coronary artery bypass graft. HISTORY OF PRESENT ILLNESS: This is a 77-year-old male patient who was admitted to our hospital on 07/07/17 from [facility] in [place] as a Swing Bed patient. Originally, he had had three-vessel coronary artery bypass graft on 06/14/17. After multiple complications postoperatively including acute renal failure and acute blood loss anemia as well as acute respiratory failure, he was sent from the hospital to [facility]. Due to his long and complicated recovery, his and the patient chose for him to come to Swing Bed admission from [facility] to be closer to home. He was admitted to our hospital for strengthening and conditioning. His progress was very poor. He had a very difficult time with physical therapy and was unable to participate in most of his care due to extreme weakness. He did have several incidences where his blood pressure was elevated and required some clonidine. He also refused his breathing treatments as well as his pulmonary hygiene and over the last several days, his respiratory status has declined as well as he became weaker and weaker with less participation in any of his activities. He also had some mental status changes in that he was very slow to answer any questions and he required full assistance with any of his activities. Today, it was reported that his oxygen saturations dropped down into the 70s. He was tachypneic and due to his continuing decline, the patient was sent to the Emergency Room here at [facility] for evaluation. DISCHARGE PLAN: The Emergency Room has taken over the care of the patient . He will be transferred to [place] in [place]. He will be discharged from the Swing Bed admission at this time to the Emergency Room. I have included a copy of his home medications as well as his medical records to the Emergency Room. After discharge, he is to followup with his primary care physician, Dr. Garibay. HOME MEDICATIONS: 1. Prednisone. 2. Tamsulosin. 3. Polyethylene glycol. 4. Milk of Magnesia. 5. Loratadine. 6. Xopenex. 7. Align. 8. Labetalol. 9. Levemir insulin. 10. Humalog insulin. 11. Hydralazine. 12. Furosemide. 13. Pepcid. 14. Colace. 15. Diltiazem. 16. Amiodarone. 17. Pulmicort Respules. 18. Dulcolax suppositories. 19. Lipitor. 20. Aspirin. 21. Brovana. 22. Alprazolam. 23. Acetaminophen with codeine. 24. Eliquis. 25. Ferrous gluconate. 26. Potassium chloride. 27. Procrit. [facility][id number]
== END 2017-07-13 11:30 | disposition short-term general hospital (02) | DRG 949 ==
LOC: MS 09:05
PROVIDERS: ADMIT Nurse Practitioner Family; ATTEND Nurse Practitioner Acute Care
PROC: 30233N1 Transfusion of Nonautologous Red Blood Cells into Peripheral Vein, Percutaneous Approach (ICD-10-PCS; principal; 2017-07-10)
DX: Z48.812 Encounter for surgical aftercare following surgery on the circulatory system (principal); B37.0 Candidal stomatitis; R53.1 Weakness; D50.9 Iron deficiency anemia, unspecified; I48.91 Unspecified atrial fibrillation; I10 Essential (primary) hypertension; E11.51 Type 2 diabetes mellitus with diabetic peripheral angiopathy without gangrene; J44.9 Chronic obstructive pulmonary disease, unspecified; I25.10 Atherosclerotic heart disease of native coronary artery without angina pectoris; Z95.5 Presence of coronary angioplasty implant and graft; Z95.820 Peripheral vascular angioplasty status with implants and grafts; Z95.1 Presence of aortocoronary bypass graft; Z87.891 Personal history of nicotine dependence; Z86.73 Personal history of transient ischemic attack (TIA), and cerebral infarction without residual deficits